=== PATIENT | male | born 1960 | race Caucasian/White ===

== ENCOUNTER 2020-04-03 20:38 | Inpatient (IN) ==
--- NOTE | 2020-04-03 23:51 | DR.SOBA ---
HPI Time Seen Time Seen by Provider: 04/03/20 22:13 Primary Care Physician Primary Care Physician: LONA HPI Comment HPI Comment: 59 yo m w/ hx of htn and copd (home o2 dependent at 2L NC) presents w/ approx. 2 week hx of worsening SOB, + wheezing a/w generalized fatigue. Denies CP, cough, f/c, LE edema/ pain, abd pain, n/v/d. No recent sick exposure. Recent covid swab at [facility], pending results. Complaints Chief Complaint:: PATIENT STATES HE HAS COPD AND HAS HAD TROUBLE BREATHING FOR 2 WEEKS; PATIENT WAS SWABBED FOR COVID MONDAY AM, BUT DOESN'T HAVE RESULTS YET Self Treatment fo Chief Complaint: TYLENOL W/CODEINE Source History Provided: Patient Mode of Arrival Mode of Arrival: Ambulatory Timing Onset of Chief Complaint: 03/20/20 Duration Duration: Weeks (2) Context Onset:: At Rest PE Risk Factors:: denies Recent Trauma and Recent Surgery History of:: COPD; denies CHF and DVT/PE Prehospital Care:: None Modifying Factors Worsens:: Nothing Improves:: Nothing Associated Signs and Symptoms Associated Signs and Symptoms: denies Fever, Cough, Nasal Congestion, Sore Throat, Hemoptysis, Chest Pain and Calf Pain If Cough Cough: None PMH PMH Past Medical History: Yes Past Medical History: Anxiety, COPD, Diabetes, GERD and Seizures Past Surgical History: Yes Past Surgical History Comment: OPEN LUNG BIOPSY Family History History of Family Medical Conditions: No Social History Alcohol Use: None Do you use any recreational Drugs:: No Lives With: Alone Lives Where: Home Infectious screening Have you traveled outside the country in the last 6 months?: No Isolation: Droplet ROS Review of Systems Constitutional: Malaise and Fatigue; negative Chills and Fever Eyes: No Symptoms Reported ENTM: negative Ear Pain and Nose Congestion Respiratoy: Short of Breath and Wheezing; negative Productive Cough, Non- Productive Cough and Dry Cough Cardiovascular: negative Chest Pain, Edema and Syncope Gastrointestinal/Abdominal: No Symptoms Reported Genitourinary: No Symptoms Reported Neurological: No Symptoms Reported Musculoskeletal: No Symptoms Reported Integumentary: No Symptoms Reported Hematologic/Lymphatic: No Symptoms Reported Endocrine: No Symptoms Reported Psychiatric: No Symptoms Reported All Other Systems: Reviewed and Negative PE Vital Signs Vitals: Temperature 36.9 C Pulse Rate [Left Radial] 83 Pulse Rate 74 Respiratory Rate 22 O2 Sat by Pulse Oximetry 86 General Limitations: No Limitations General Appearance: Alert; negative Anxious and In Distress Head Head Exam: Normal Inspection Eyes Eye exam: Normal Appearance ENT ENT Exam: Normal Exam Neck Neck Exam: Normal Inspection Chest Chest Inspection: Normal Inspection Respiratory Respiratory Exam: Prolonged Expiratory Phase; negative Accessory Muscle Use, Chest Wall Tenderness, Respiratory Distress and Stridor Respiratory Exam: Bilateral: Wheezing Cardiovascular Cardiovascular Exam: Regular Rate and Normal Rhythm Abdominal Exam Abdominal Exam: Normal Inspection, Normal Bowel Sounds and Soft Extremities Extremities Exam: Normal Inspection Back Back Exam: Normal Inspection Neurologic Neurological Exam: Alert and Oriented X3 Psychiatric Psychiatric Exam: Normal Affect and Normal Mood Skin Skin Exam: Warm, Dry, Intact and Normal Color COURSE Treatment Treatment: 0312: 59 yo m w/ home o2 dependent copd presents with weakness and SOB. At baseline o2 requirement. CXR w/ infiltrate. Covid +. EKG w/o acute changes. Mild elena noted. IVf's given. Given dose of decadron/ Rocephin/ azithromycin. Will continue to give ivf's and reassess possibility of DC in am. 0629: Pending 2L NSS. Will sign out to am doc. 0740: o2 requirement 4-5 L NC. d/w Dr Anderson whom agrees to admit. ROR Labs Reviewed Laboratory Results Reviewed?: Yes Result Diagrams: 04/04/20 00:01 04/04/20 00:01 Laboratory: WBC 5.5 X10^3/uL (3.6-10.0) 04/04/20 00:01 RBC 4.44 X10^6/uL (4.7-6.0) L 04/04/20 00:01 Hgb 13.7 g/dL (13.5-18.0) 04/04/20 00:01 Hct 39.8 % (42.0-54.0) L 04/04/20 00:01 MCV 89.5 fL (80.0-100.0) 04/04/20 00:01 MCH 30.9 pg (27.0-34.0) 04/04/20 00:01 MCHC 34.5 g/dL (33.0-35.0) 04/04/20 00:01 RDW 12.8 % (11.6-16.5) 04/04/20 00:01 Plt Count 189 X10^3/uL (150.0-450.0) 04/04/20 00:01 MPV 8.3 fL (7.4-11.0) 04/04/20 00:01 Neut % (Auto) 78.7 % (42.0-75.0) H 04/04/20 00:01 Lymph % (Auto) 10.9 % (21.0-51.0) L 04/04/20 00:01 [place] % (Auto) 10.3 % (0.0-13.0) 04/04/20 00:01 Eos % (Auto) 0.0 % (0.9-2.9) L 04/04/20 00:01 Baso % (Auto) 0.1 % (0.2-1.0) L 04/04/20 00:01 Neut # (Auto) 4.4 x10^3/uL (2.2-4.8) 04/04/20 00:01 Lymph # (Auto) 0.6 X10^3/uL (1.3-2.9) L 04/04/20 00:01 [place] # (Auto) 0.6 x10^3/uL (0.3-0.8) 04/04/20 00:01 Eos # (Auto) 0.0 x10^3/uL (0.0-0.2) 04/04/20 00:01 Baso # (Auto) 0.0 X10^3/uL (0.0-0.1) 04/04/20 00:01 Absolute Nucleated RBC 0.0 /100WBC 04/04/20 00:01 Sample Site Rrad 04/04/20 00:25 ABG pH 7.400 (7.35-7.45) 04/04/20 00:25 ABG pCO2 33.0 mmHg (35.0-45.0) L 04/04/20 00:25 ABG pO2 57.0 mmHg (80.0-100.0) L 04/04/20 00:25 ABG HCO3 20.4 mmol/L (22-26) L 04/04/20 00:25 ABG O2 Saturation 89.0 % (90-100) L 04/04/20 00:25 ABG Base Excess -3.6 mmol/L (-2.0-2.0) L 04/04/20 00:25 Erik Test Pos 04/04/20 00:25 A-a Gradient 101.0 mmHg 04/04/20 00:25 FiO2 28.0 04/04/20 00:25 Blood Gas Comments Estephania abg well-mtf 04/04/20 00:25 Sodium 135 mmol/L (136-145) L 04/04/20 00:01 Corrected Sodium 136 mmol/L (136-145) 04/04/20 00:01 Potassium 4.3 mmol/L (3.5-5.1) 04/04/20 00:01 Chloride 98 mmol/L (98-107) 04/04/20 00:01 Carbon Dioxide 25.6 mmol/L (21-32) 04/04/20 00:01 BUN 32 mg/dL (7-18) H 04/04/20 00:01 Creatinine 1.96 mg/dL (0.70-1.30) H 04/04/20 00:01 Est GFR (MDRD) Af Amer 45 (>60) L 04/04/20 00:01 Est GFR (MDRD) Non-Af 37 (>60) L 04/04/20 00:01 Glucose 153 mg/dL (65-99) H 04/04/20 00:01 Calcium 9.4 mg/dL (8.5-10.1) 04/04/20 00:01 Corrected Calcium TNP 04/04/20 00: Ferritin 2041 ng/mL (26-388) H 04/04/20 00:01 Total Bilirubin 0.40 mg/dL (0.2-1.0) 04/04/20 00:01 AST 48 Units/L (15-37) H 04/04/20 00:01 ALT 47 Units/L (12-78) 04/04/20 00:01 Alkaline Phosphatase 43 Units/L (46-116) L 04/04/20 00:01 Lactate Dehydrogenase 330 Units/L (85-227) H 04/04/20 00:01 Troponin I < 0.02 ng/mL (0-1.5) 04/04/20 00:01 Total Protein 8.2 g/dL (6.4-8.2) 04/04/20 00:01 Albumin 3.6 g/dL (3.4-5.0) 04/04/20 00:01 Globulin 4.6 g/dL (2.5-4.5) H 04/04/20 00:01 Albumin/Globulin Ratio 0.8 Ratio (1.1-2.1) L 04/04/20 00:01 SARS CoV-2 RNA Rapid DAYNA Positive (NEGATIVE) A 04/04/20 01:35 EKG Rate: 85 [place]: RAD Rhythm: NSR Block: None Hypertrophy: None ST: Normal Opioid Opioid Risk Tool Total: 0 Total Score Risk Category: Low Risk Copyright: Haile JULIEN predicting aberrant behaviors Diagnosis Discharge Problem: COVID-19, ELENA (acute kidney injury), Acute hypoxemic respiratory failure COPD (chronic obstructive pulmonary disease) Qualifiers: COPD type: unspecified COPD Qualified Code(s): J44.9 - Chronic obstructive pulmonary disease, unspecified CAP (community acquired pneumonia) Qualifiers: Laterality: unspecified laterality Qualified Code(s): J18.9 - Pneumonia, unspecified organism Instructions Instructions: Chronic Obstructive Pulmonary Disease Exacerbation, [id number] Community-Acquired Pneumonia, Adult Forms: Patient Portal Social Distancing
[2020-04-04 00:09] LABS: BASOPHILS % (AUTO) 0.1 % (0.2-1.0); HEMATOCRIT 39.8 % (42.0-54.0); HEMOGLOBIN 13.7 g/dL (13.5-18.0); LYMPHOCYTES # (AUTO) 0.6 X10^3/uL (1.3-2.9); LYMPHOCYTES % (AUTO) 10.9 % (21.0-51.0); MEAN CORPUSCULAR HEMOGLOBIN 30.9 pg (27.0-34.0); MEAN CORPUSCULAR HGB CONC 34.5 g/dL (33.0-35.0); MEAN CORPUSCULAR VOLUME 89.5 fL (80.0-100.0); MEAN PLATELET VOLUME 8.3 fL (7.4-11.0); MONOCYTES # (AUTO) 0.6 x10^3/uL (0.3-0.8); MONOCYTES % (AUTO) 10.3 % (0.0-13.0); NEUTROPHILS # (AUTO) 4.4 x10^3/uL (2.2-4.8); NEUTROPHILS % (AUTO) 78.7 % (42.0-75.0); PLATELET COUNT 189 X10^3/uL (150.0-450.0); RED BLOOD COUNT 4.44 X10^6/uL (4.7-6.0); RED CELL DISTRIBUTION WIDTH 12.8 % (11.6-16.5); WHITE BLOOD COUNT 5.5 X10^3/uL (3.6-10.0)
[2020-04-04] MEDS ORDERED: DUONEB 0.5 MG/3 MG (3 mL) NEB ONE ×3 (00:14→12:08)
[2020-04-04] MEDS ORDERED: DECADRON INJ PRESERVATIVE-FREE IVP ONE ×2 (00:14→01:22)
[2020-04-04 00:23] LABS: ALANINE AMINOTRANSFERASE 47 Units/L (12-78); ALBUMIN 3.6 g/dL (3.4-5.0); ALKALINE PHOSPHATASE 43 Units/L (46-116); ASPARTATE AMINO TRANSFERASE 48 Units/L (15-37); BLOOD UREA NITROGEN 32 mg/dL (7-18); CALCIUM 9.4 mg/dL (8.5-10.1); CARBON DIOXIDE 25.6 mmol/L (21-32); CHLORIDE 98 mmol/L (98-107); COR NA(FOR HYPERGLY) 136 mmol/L (136-145); CREATININE 1.96 mg/dL (0.70-1.30); LACTATE DEHYDROGENASE 330 Units/L (85-227); SODIUM 135 mmol/L (136-145); TOTAL PROTEIN 8.2 g/dL (6.4-8.2); TROPONIN I < 0.02 ng/mL (0-1.5); eGFR NON BLACK RACES 37 (>60)
[2020-04-04 00:27] LABS: ABG BASE EXCESS -3.6 mmol/L (-2.0-2.0); ABG HCO3 20.4 mmol/L (22-26)
[2020-04-04 00:28] LABS: ABG ALLEN TEST POS
[2020-04-04] MEDS ORDERED: ROCEPHIN 1 GRAM IV PREMIX 1 G/50 ML IV.SOLN. IV ONE (01:22)
[2020-04-04] MEDS ORDERED: ZITHROMAX INJ 500 MG VIAL 500 MG in NS 250 ML IV 250 ML IV SCH (01:22)
[2020-04-04] MEDS ORDERED: NS 1000 ML 1,000 ML IV ONE (01:23)
[2020-04-04] MEDS ORDERED: ZITHROMAX INJ 500 MG VIAL IV ONE (02:11)
[2020-04-04] MEDS ORDERED: ROCEPHIN VIAL 1 GRAM ONE (02:11)
[2020-04-04] MEDS ORDERED: NS 1000 ML 1,000 ML ONE ×3 (02:11→19:02)
[2020-04-04] MEDS ORDERED: NS 250 ML IV 250 ML IV ONE ×2 (02:12→18:49)
[2020-04-04] MEDS ORDERED: DECADRON INJ ONE (02:12)
[2020-04-04] MEDS ORDERED: NS 100 ML IV + SPIKE MINIBAG* 100 ML IV ONE ×2 (02:12→21:08)
[2020-04-04] MEDS: NS 1000 ML 1,000 ML IV ONE ×2 (03:50→06:17)
--- NOTE | 2020-04-04 05:20 | RAD ---
HISTORYCOPD SOBSTUDYPortable AP chestCOMPARISONImages unavailableFINDINGSNormal heart size and contour. There are extensive bilateral perihilar and lower lobe infiltrates. No discrete mass, large pleural effusion or pneumothorax seen. The upper lobes are relatively clear.IMPRESSIONBilateral pulmonary infiltrates are likely acute and may reflect pneumonia; prior imaging for comparison not currently available.Electronically signed by: MAGGIE SOL (Apr 04, 2020 05:18:27)
[2020-04-04] MEDS: ZITHROMAX INJ 500 MG VIAL 500 MG in D5W 250 ML IV 250 ML IV SCH (08:08)
[2020-04-04] MEDS: ROCEPHIN 1 GRAM IV PREMIX 1 G/50 ML IV.SOLN. IV SCH (08:10)
[2020-04-04 08:13] LABS: ALANINE AMINOTRANSFERASE 42 Units/L (12-78); ALBUMIN 2.8 g/dL (3.4-5.0); ALKALINE PHOSPHATASE 36 Units/L (46-116); ASPARTATE AMINO TRANSFERASE 44 Units/L (15-37); BLOOD UREA NITROGEN 33 mg/dL (7-18); CALCIUM 7.8 mg/dL (8.5-10.1); CARBON DIOXIDE 19.7 mmol/L (21-32); CHLORIDE 103 mmol/L (98-107); COR CA(FOR HYPOALB) 8.8 mg/dL (8.5-10.1); COR NA(FOR HYPERGLY) 137 mmol/L (136-145); CREATININE 1.46 mg/dL (0.70-1.30); SODIUM 136 mmol/L (136-145); TOTAL PROTEIN 6.8 g/dL (6.4-8.2); eGFR NON BLACK RACES 52 (>60)
[2020-04-04] MEDS ORDERED: DECADRON INJ PRESERVATIVE-FREE IVP SCH (09:00)
[2020-04-04 10:46] VITALS: BMI 32.5
[2020-04-04] MEDS ORDERED: XANAX PO PRN (11:49)
[2020-04-04] MEDS ORDERED: REMDESIVIR 200 MG in NS 250 ML IV 250 ML IV NR (11:49)
[2020-04-04] MEDS ORDERED: VITAMIN C PO SCH (12:00)
[2020-04-04] MEDS ORDERED: ZOLOFT PO SCH (12:00)
[2020-04-04] MEDS: PULMICORT NEB TX 0.5 MG NEB SCH ×2 (12:06→21:30)
[2020-04-04] MEDS: DUONEB 0.5 MG/3 MG (3 mL) NEB SCH ×3 (12:06→21:30)
[2020-04-04] MEDS: BUSPAR PO SCH ×4 (13:17→21:05)
[2020-04-04] MEDS: ZINC SULFATE PO SCH ×2 (13:18→21:02)
[2020-04-04] MEDS ORDERED: SOLU-Medrol 40 MG VIAL ONE ×2 (13:20→21:16)
[2020-04-04] MEDS ORDERED: DILANTIN CAP 100 MG EXT REL PO ONE ×2 (13:20→21:07)
[2020-04-04] MEDS: DILANTIN CAP 100 MG EXT REL PO SCH ×2 (13:23→21:08)
[2020-04-04] MEDS: SOLU-Medrol 125 MG VIAL IVP SCH ×2 (13:24→18:47)
[2020-04-04] MEDS ORDERED: HumuLIN R SC PRN (14:36)
--- NOTE | 2020-04-04 14:37 | DR.H&P ---
H&P History & Physical for Day of: H&P Date: 04/04/20 Chief Complaint Chief Complaint: Shortness of breath Weakness, fever, chills Allergies Allergies Allergy/AdvReac Type Severity Reaction Status Date / Time No Known Drug Allergies Allergy Verified 04/04/20 05:30 History of Present Illness History of Present Illness: Pt is a 59 year old male past medical history HTN, COPD(home ~2L O2), DMT2, presenting with 2 week history of worsening shortness of breath, weakness, wheezing. He was found to be COVID19 positive(04/04) in the ED. Labs/imaging: Wbc 5.5, Hgb 13.7, Plt 189, Na 136, K 4.3, Cr 1.46, Glucose 165, Ferritin 2041, AB.4/33/57/20/89% on 2L. CXR: Bilateral pulmonary infiltrates likely to reflect pneumonia. In the ED pt was given Rocephin and Decadron. Will start patient on treatments: Remdesivir, Solumedrol 80mg q8h, Bronchodilators, Antibiotics: Zosyn, immune supporting supplements, supplemental O2, I/S, Respiratory therapy consult, Pneumonia protocol. He is currently requiring venturi mask of 6L with FiO2 of 50%. Will continue to titrate oxygen. Continue to closely monitor and follow up labs/imaging in the morning. Past Medical History Past Medical History: Anxiety, COPD, Diabetes, GERD and Seizures Social History Does patient currently use any type of tobacco product: No Have you used tobacco products in the last 12 months: No Type of Tobacco Use: None Does any household member use tobacco: No Alcohol Use: None Drug Use: None Medications Home Medications: No Known Drug Allergies Allergy (Verified 04/04/20 05:30) CONTINUE taking the following medications acetaminophen-codeine 1 tab PO TID PRN 04/04/20 [History] alprazolam [Xanax] 0.5 mg PO BID PRN 04/04/20 [History] buspirone 15 mg PO QID 04/04/20 [History] buspirone [BuSpar] 10 mg PO DIRECTED 04/04/20 [History] gemfibrozil [Lopid] 600 mg PO BID 04/04/20 [History] lisinopril 20 mg PO DAILY 04/04/20 [History] metformin 250 mg PO DAILY 04/04/20 [History] montelukast [Singulair] 10 mg PO DAILY 04/04/20 [History] phenytoin sodium extended [Dilantin Extended] 200 mg PO BID 04/04/20 [History] sertraline [Zoloft] 50 mg PO DAILY 04/04/20 [History] simvastatin [Zocor] 20 mg PO HS 04/04/20 [History] tamsulosin [Flomax] 0.4 mg PO DAILY 04/04/20 [History] Labs Result Diagrams: 04/04/20 00:01 04/04/20 07:50 Labs: Laboratory WBC 5.5 X10^3/uL (3.6-10.0) 04/04/20 00:01 RBC 4.44 X10^6/uL (4.7-6.0) L 04/04/20 00:01 Hgb 13.7 g/dL (13.5-18.0) 04/04/20 00:01 Hct 39.8 % (42.0-54.0) L 04/04/20 00:01 MCV 89.5 fL (80.0-100.0) 04/04/20 00:01 MCH 30.9 pg (27.0-34.0) 04/04/20 00:01 MCHC 34.5 g/dL (33.0-35.0) 04/04/20 00:01 RDW 12.8 % (11.6-16.5) 04/04/20 00:01 Plt Count 189 X10^3/uL (150.0-450.0) 04/04/20 00:01 MPV 8.3 fL (7.4-11.0) 04/04/20 00:01 Neut % (Auto) 78.7 % (42.0-75.0) H 04/04/20 00:01 Lymph % (Auto) 10.9 % (21.0-51.0) L 04/04/20 00:01 [place] % (Auto) 10.3 % (0.0-13.0) 04/04/20 00:01 Eos % (Auto) 0.0 % (0.9-2.9) L 04/04/20 00:01 Baso % (Auto) 0.1 % (0.2-1.0) L 04/04/20 00:01 Neut # (Auto) 4.4 x10^3/uL (2.2-4.8) 04/04/20 00:01 Lymph # (Auto) 0.6 X10^3/uL (1.3-2.9) L 04/04/20 00:01 [place] # (Auto) 0.6 x10^3/uL (0.3-0.8) 04/04/20 00:01 Eos # (Auto) 0.0 x10^3/uL (0.0-0.2) 04/04/20 00:01 Baso # (Auto) 0.0 X10^3/uL (0.0-0.1) 04/04/20 00:01 Absolute Nucleated RBC 0.0 /100WBC 04/04/20 00:01 Sample Site Rrad 04/04/20 00:25 ABG pH 7.400 (7.35-7.45) 04/04/20 00:25 ABG pCO2 33.0 mmHg (35.0-45.0) L 04/04/20 00:25 ABG pO2 57.0 mmHg (80.0-100.0) L 04/04/20 00:25 ABG HCO3 20.4 mmol/L (22-26) L 04/04/20 00:25 ABG O2 Saturation 89.0 % (90-100) L 04/04/20 00:25 ABG Base Excess -3.6 mmol/L (-2.0-2.0) L 04/04/20 00:25 Erik Test Pos 04/04/20 00:25 A-a Gradient 101.0 mmHg 04/04/20 00:25 FiO2 28.0 04/04/20 00:25 Blood Gas Comments Estephania abg well-mtf 04/04/20 00:25 Sodium 136 mmol/L (136-145) 04/04/20 07:50 Corrected Sodium 137 mmol/L (136-145) 04/04/20 07:50 Potassium 4.3 mmol/L (3.5-5.1) 04/04/20 07:50 Chloride 103 mmol/L (98-107) 04/04/20 07:50 Carbon Dioxide 19.7 mmol/L (21-32) L 04/04/20 07:50 BUN 33 mg/dL (7-18) H 04/04/20 07:50 Creatinine 1.46 mg/dL (0.70-1.30) H 04/04/20 07:50 Est GFR (MDRD) Af Amer > 60 (>60) 04/04/20 07:50 Est GFR (MDRD) Non-Af 52 (>60) L 04/04/20 07:50 Glucose 157 mg/dL (65-99) H 04/04/20 07:50 POC Glucose (mg/dL) 165 mg/dL (65-99) H 04/04/20 12:24 Calcium 7.8 mg/dL (8.5-10.1) L 04/04/20 07:50 Corrected Calcium 8.8 mg/dL (8.5-10.1) 04/04/20 07:50 Ferritin 2041 ng/mL (26-388) H 04/04/20 00:01 Total Bilirubin 0.30 mg/dL (0.2-1.0) 04/04/20 07:50 AST 44 Units/L (15-37) H 04/04/20 07:50 ALT 42 Units/L (12-78) 04/04/20 07:50 Alkaline Phosphatase 36 Units/L (46-116) L 04/04/20 07:50 Lactate Dehydrogenase 330 Units/L (85-227) H 04/04/20 00:01 Troponin I < 0.02 ng/mL (0-1.5) 04/04/20 00:01 Total Protein 6.8 g/dL (6.4-8.2) 04/04/20 07:50 Albumin 2.8 g/dL (3.4-5.0) L 04/04/20 07:50 Globulin 4.0 g/dL (2.5-4.5) 04/04/20 07:50 Albumin/Globulin Ratio 0.7 Ratio (1.1-2.1) L 04/04/20 07:50 SARS CoV-2 RNA Rapid DAYNA Positive (NEGATIVE) A 04/04/20 01:35 Review of Systems Constitutional: Fever, Chills and Weakness Eyes: No Symptoms Reported ENT: No Symptoms Reported Respiratory: Cough and Shortness of Breath Cardiovascular: No Symptoms Reported Gastrointestinal: No Symptoms Reported Genitourinary: No Symptoms Reported Musculoskeletal: No Symptoms Reported Skin: No Symptoms Reported Neurological: No Symptoms Reported Physical Exam Vital Signs: Temperature 98.5 F Pulse Rate [Left Radial] 85 Pulse Rate 76 Respiratory Rate 20 Blood Pressure [Left Arm] 112/61 O2 Sat by Pulse Oximetry 86 Oriented: Normal Eyes: Normal Ear: Normal Nose: Normal Throat: Normal Respiratory: Diminished Throughout, Rales Throughout and Wheezes Throughout Cardiovascular: Normal : Normal Auscultation: Bowel Sounds: Normal Palpation: Normal Tenderness: Normal Skin: Normal Musculoskeletal: Normal Psychiatric: Normal Mood Description: Calm and Appropriate Affect: Normal Speech Pattern: Clear and Appropriate Assessment/Plan (1) Pneumonia due to COVID-19 virus: Status: Acute Plan: Remdesivir, Solumedrol, Bronchodilators, supplemental O2 (2) COPD (chronic obstructive pulmonary disease): Qualifiers: COPD type: unspecified COPD Qualified Code(s): J44.9 - Chronic obstructive pulmonary disease, unspecified Status: Acute (3) KENDY (acute kidney injury): Status: Acute Review H&P Reviewed: Yes Patient was examined?: Yes
[2020-04-04] MEDS ORDERED: REMDESIVIR IV ONE (18:49)
[2020-04-04] MEDS ORDERED: ZOCOR TAB 20 MG PO SCH (21:00)
[2020-04-04] MEDS: ZOSYN VIAL 3.375 GRAMS 3.375 G in NS 100 ML IV + SPIKE MINIBAG* 100 ML IV SCH ×2 (21:00→21:33)
[2020-04-04] MEDS ORDERED: ZOSYN VIAL 3.375 GRAMS IV ONE (21:08)
[2020-04-05 03:29] VITALS: BP 147/81
[2020-04-05] MEDS ORDERED: REMDESIVIR 100 MG in NS 250 ML IV 250 ML IV SCH (09:00)
[2020-04-05] MEDS ORDERED: DECADRON INJ IVP SCH (09:00)
[2020-04-05] MEDS ORDERED: FLOMAX PO SCH (09:00)
[2020-04-06] MEDS ORDERED: VITAMIN A PO SCH (09:00)
[2020-04-06] MEDS ORDERED: VITAMIN D3 125 mcg (5,000 UNITS) PO SCH (09:00)
== END 2020-04-05 03:20 | disposition left against medical advice (07) | DRG 177 ==
LOC: ER 20:53 → OBS 04-04 07:40 → UNDODISIN 04-04 08:57
PROVIDERS: ADMIT Internal Medicine; ATTEND Internal Medicine
DX: Z53.29 Procedure and treatment not carried out because of patient's decision for other reasons; U07.1 COVID-19; F41.8 Other specified anxiety disorders; J12.89 Other viral pneumonia; Z99.81 Dependence on supplemental oxygen; E11.65 Type 2 diabetes mellitus with hyperglycemia; J96.01 Acute respiratory failure with hypoxia; J44.9 Chronic obstructive pulmonary disease, unspecified; R79.89 Other specified abnormal findings of blood chemistry; N17.8 Other acute kidney failure; I10 Essential (primary) hypertension